=== PATIENT | female | born 1950 | race Caucasian/White ===

== ENCOUNTER → 2016-07-15 | Outpatient (CLI) | payer OTHER ==
[~2016-07-15] MED LIST: ASPI81TA28 PO; CALC-20 PO; CHOL2000 PO; CYAN100020 PO; LEVO25TA PO; MAGN250T3 PO; MULTTAB45 PO; TAMO20TA47 PO
[2016-07-15 15:06] LABS: ALKALINE PHOSPHATASE 14 U/L (45-117); ALT/SGPT 34 U/L (12-78); AST/SGOT 21 U/L (15-37); BLOOD UREA NITROGEN 19 mg/dl (7-18); BUN/CREATININE RATIO 20.1 (10-20); CALCIUM 9.1 mg/dl (8.5-10.1); CARBON DIOXIDE 29 mmol/L (21-32); CHLORIDE 105 mmol/L (98-107); CHOLESTEROL 207 mg/dl (0-200); CREATININE 0.96 mg/dl (0.60-1.20); GLUCOSE 91 mg/dl (70-99); POTASSIUM 4.2 mmol/L (3.5-5.1); SODIUM 141 mmol/L (136-145)
[2016-07-15 15:29] LABS: ALB/GLOB RATIO 1.3 (0.9-2); CHOLESTEROL/HDL RATIO 2.5; HDL CHOLESTEROL 82 mg/dl; LDL CHOLESTEROL CALCULATED 108 mg/dl; TRIGLYCERIDES 85 mg/dl (0-150); VERY LOW DENSITY LIPOPROT CALC 17 mg/dl
== END | disposition home or self-care (01) ==
LOC: C.LABBC 10:59
PROVIDERS: ATTEND Family Medicine
DX: E03.9 Hypothyroidism, unspecified (principal); Z11.59 Encounter for screening for other viral diseases; E78.5 Hyperlipidemia, unspecified; M85.80 Other specified disorders of bone density and structure, unspecified site

== ENCOUNTER → 2016-10-13 | Outpatient (CLI) | payer OTHER ==
--- NOTE | 2016-10-13 13:29 | MAMMOGRAPHY REPORT ---
BILATERAL DIGITAL DIAGNOSTIC MAMMOGRAM TOMOSYNTHESIS WITH CAD: 10/13/2016 CLINICAL HISTORY: 66-year-old woman presents for annual bilateral mammography. She has a history of right breast cancer status post breast conservation therapy. No current complaints. TECHNIQUE: Bilateral CC and MLO 2-D digital and tomosynthesis images, spot magnification right CC an d ML views were obtained. Current study was also evaluated with a Computer Aided Detection (CAD) sys tem. COMPARISON: Comparison is made to exams dated: 10/11/2015 mammogram, 04/03/2015 ultrasound, 5 mammogram, 10/01/2014 mammogram, 01/12/2014 mammogram, and 12/11/2013 mammogram - [facility]. BREAST COMPOSITION: There are scattered areas of fibroglandular density in both breasts. FINDINGS: A linear scar marker overlies the 12:00 anterior right breast, denoting an area of prior l umpectomy. There is asymmetry in the superior left breast on the MLO view that appears similar datin g back to at least 10/03/2007, therefore likely benign. There is no evidence of any suspicious mass, architectural distortion or suspicious calcifications bilaterally. In particular on the spot magnif ication views of the right breast, no new calcifications are seen. IMPRESSION: ACR BI-RADS CATEGORY 2: BENIGN Stable bilateral mammograms, without mammographic evidence of malignancy. Recommend bilateral mammog papito in one year, and consider remaining a diagnostic patient for repeat spot magnification views ne ar the surgical site, given the personal history of right breast cancer and associated faint calcific ations. The patient has been verbally notified of the results. Approximately 10% of breast cancers are not detected with mammography. A negative mammographic report should not delay biopsy if a clinically suggestive mass is present. Marylu Alejandra M.D. ay/:10/13/2016 11:04:45 Pathologist: Felipa BUENO)(Naima), [facility] letter sent: Normal 1/2 BI-RADS Code: ACR BI-RADS Category 2: Benign
== END | disposition home or self-care (01) ==
LOC: C.MAMM 10:16
PROVIDERS: ATTEND Surgery
DX: C50.911 Malignant neoplasm of unspecified site of right female breast (principal)

== ENCOUNTER → 2016-11-04 | Outpatient (CLI) | payer OTHER | END | disposition home or self-care (01) | LOC: C.PATHSPEC 17:49 | PROVIDERS: ATTEND Obstetrics & Gynecology | DX: N95.0 Postmenopausal bleeding (principal) ==

== ENCOUNTER → 2016-12-25 | Outpatient (CLI) | payer OTHER ==
[~2016-12-25] MED LIST changes: -MAGN250T3 PO
== END | disposition home or self-care (01) ==
LOC: C.PAPS 16:31
PROVIDERS: ATTEND Obstetrics & Gynecology
DX: Z12.4 Encounter for screening for malignant neoplasm of cervix (principal)

== ENCOUNTER → 2016-12-25 | Outpatient (CLI) | payer OTHER | END | disposition home or self-care (01) | LOC: C.CPL 12:35 | PROVIDERS: ATTEND Obstetrics & Gynecology | DX: Z01.818 Encounter for other preprocedural examination (principal); Z12.4 Encounter for screening for malignant neoplasm of cervix ==

== ENCOUNTER → 2016-12-28 | Day surgery (SDC) | payer OTHER ==
[2016-11-24 10:09] VITALS: Ht 157.5 cm; Wt 58.2 kg
--- NOTE | 2016-12-27 13:56 | HISTORY & PHYSICAL EXAMINATION ---
DATE OF ADMISSION: 12/28/2016 The patient is for surgery on 12/28/2016. CHIEF COMPLAINT: For hysteroscopy and D&C. HISTORY OF PRESENT ILLNESS: The patient is a 66-year-old white female who has had intermittent light bleeding since June of this year. An ultrasound done on 11/04/2016 showed her endometrial lining to be 5.2 mm in thickness. Endometrial biopsy the same day yielded inadequate tissue for diagnosis. The patient is taking tamoxifen as she was treated for breast cancer in 2013. She had been taking raloxifene prior to the diagnosis of breast cancer. Her breast cancer was treated with partial mastectomy of the right breast, radiation therapy as well as chemotherapy. PAST MEDICAL HISTORY: ALLERGIES: The patient has no known drug allergies. MEDICATIONS: She presently takes aspirin 81 mg daily though was asked to stop this when seen on December 25. She also takes levothyroxine 25 mcg daily, tamoxifen daily as well as calcium plus vitamin D, a multivitamin, vitamin B12 and vitamin D. ILLNESSES: As mentioned, the patient has been treated for breast cancer. She also is hypothyroid. In addition, has a diagnosis of hyperlipidemia. She has osteopenia. She has been treated for vitamin D deficiency. PAST SURGICAL HISTORY: She has had eye surgery in the past. Also, partial right mastectomy as mentioned. History of radiation therapy to the right breast. Also, a history of sinus surgery. FAMILY HISTORY: Her sister and paternal aunt have been treated for breast cancer. SOCIAL HISTORY: The patient is . She denies smoking cigarettes. She drinks alcohol occasionally. PHYSICAL EXAMINATION: VITAL SIGNS: Height 5 feet 2 inches, weight 130 pounds, blood pressure was 122/74. HEENT: Grossly within normal limits. NECK: Supple without masses. CHEST: Her lungs are clear without wheezing. HEART: Regular rate and rhythm. No murmurs, gallops or rubs. ABDOMEN: Soft and nontender with no masses and no obvious hernias. PELVIC: External genitalia normal. Vagina pink and smooth. Cervix appears normal. Uterus is within normal limits in size and nontender. Adnexa nontender with no masses palpable. EXTREMITIES: No cyanosis, clubbing or edema. IMPRESSION: A 66-year-old white female with post-menopausal bleeding. PLAN: The patient is for hysteroscopy, dilation of the cervix and curettage with possible removal of polyp/lesion. The patient is aware of the risks of bleeding, infection, damage to internal organs, perforation of the uterus and possible need for further surgery and treatment. The patient wishes to proceed with hysteroscopy and D&C. She is also aware of the alternative of no treatment, which carries the risk of potentially missing a cancer. ELIZABETH
[~2016-12-28] VITALS: Ht 157.5 cm; Wt 58.2 kg
[~2016-12-28] MED LIST changes: +ATROPINE SULFATE 0.1 MG/ML 5ML SYR IV PRN; +DEXAMETHASONE SOD INJ 4 MG/ML VIAL ONE; +EpHEDrine SULFATE INJ 50 MG/ML AMP IV PRN; +FENTANYL CITRATE INJ 50 MCG/1 ML 2 ML VIAL IV PRN; +FENTANYL CITRATE INJ 50 MCG/1 ML 2 ML VIAL ONE; +IBUPROFEN 600 MG TAB PO PRN; +KETOROLAC TROMETHAMINE 30 MG/ML VIAL ONE; +LACTATED RINGER'S 1000ML 1,000 ML IV SCH; +LIDOCAINE HCL 2% 2 ML VIAL (20MG/ML) ONE; +MIDAZOLAM HCL 1 MG/ML 2ML VIAL ONE; +ONDANSETRON INJ 2 MG/ML 2 ML VIAL IV PRN; +ONDANSETRON INJ 2 MG/ML 2 ML VIAL ONE; +PROPOFOL IV EMULSION 10 MG/ML 20 ML VIAL IV ONE; +SODIUM CHLORIDE 0.9% 1000ML 1,000 ML IV SCH
--- NOTE | 2016-12-28 06:49 | History & Physical Bridge - SC ---
H&P Re-Evaluation Bridge Note: I have examined the patient, reviewed the History & Physical and in the interval since the performance of the History & Physical I have noted the following changes of clinical significance: No changes noted
--- NOTE | 2016-12-28 07:33 | [facility] Post Operative Brief Note ---
Immediate Operative Summary Operative Date Dec 28, 2016. Pre-Operative Diagnosis Post Menopausal Bleeding Post-Operative Diagnosis Same Procedure(s) Performed Dilatation And Curettage, Hysteroscopy Surgeon Dr. Paris Core Shaper Surgeon(s) None Estimated Blood Loss 25 ML Findings See dictated note. Specimens A. Endocervical Curettings B. Endometrial Curettings Complication(s) None Disposition Recovery Room / PACU
--- NOTE | 2016-12-28 07:44 | Discharge Instructions-SurgCtr ---
Discharge Instructions Date of Service Dec 28, 2016. Visit Reason for Visit: Post Menopausal Bleeding Discharge Discharge Diagnosis / Problem: S/P Hysteroscopy, D&C Discharge Goals Goal(s): Diagnostic testing, Therapeutic intervention Activity Recommendations Activity Limitations: per Instructions/Follow-up section Anesthesia . Post Anesthesia Instructions: If you have had General Anesthesia or IV Sedation: * Do not drive today. * Resume driving when surgeon permits. * Do not make important decisions or sign legal documents today. * Call surgeon for: 1. Temperature elevations greater than 101 degrees F. 2. Uncontrollable pain. 3. Excessive bleeding. 4. Persistent nausea and vomiting. 5. Medication intolerance (nausea, vomiting or rash). * For nausea and vomiting use only clear liquids such as: tea, soda, bouillon until nausea subsides, then gradually increase diet as tolerated. * If you have any concerns or questions, call your surgeon's office. If physician is unavailable and it is an emergency, call 911 or go to the nearest emergency room. . Instructions / Follow-Up Instructions / Follow-Up ACTIVITY RECOMMENDATIONS: * Avoid tampons, douching, hot tubs, pools, and intercourse until bleeding has stopped. * May shower as usual. * No strenuous activity for 24-48 hours. After 24-48 hours, you may do anything you feel like doing (driving and sports are okay). SPECIAL CARE INSTRUCTIONS: Special Diet: * Mild nausea may occur in the immediate post-operative period. * Take clear liquids such as tea, cola or bouillon until all nausea has subsided; you may then resume your normal diet. Special Care: * Light bleeding and vaginal spotting can last from a few days to 3-4 weeks. Call your doctor if bleeding becomes heavier than the heaviest part of your period. Call if you have persistent severe cramping or foul smelling discharge. * Check your temperature twice a day for one week. If it goes above 100.4 degrees Fahrenheit (38.0 Celsius), notify your doctor. * Call your doctor's office for an appointment for 2-4 weeks after your surgery. [phone] FOLLOW-UP VISIT: Call your doctor's office for an appointment for 2-4 weeks after your surgery. Diet Recommendations Home Diet: resume previous diet Procedures Procedures Performed: Dilatation And Curettage, Hysteroscopy Pending Studies Studies pending at discharge: yes List of pending studies: We will call you with the pathology report from the tissue removed with the D&C. Medical Emergencies . Who to Call and When: Medical Emergencies: If at any time you feel your situation is an emergency, please call 911 immediately. . Non-Emergent Contact Non-Emergency issues call your: Fixture Builder Call Non-Emergent contact if: temperature is above 100.5, your pain is not controlled . . "Provider Documentation" section prepared by Joyce Paris. .
--- NOTE | 2016-12-28 08:23 | Anesthesia Progress Nt - [facility] ---
Anesthesia Post Op Note Date & Time Dec 28, 2016 at 08:23 Vital Signs Pain Intensity: 0 Vital Signs Past 12 Hours Date Time Temp Pulse Resp B/P (MAP) Pulse Ox O2 Delivery O2 Flow Rate FiO2 12/28/16 07:39 36.4 71 10 116/60 99 Mask 6 12/28/16 06:26 36.8 72 16 122/74 (90) 95 Room Air Notes Mental Status: alert / awake / arousable, participated in evaluation Pt Amnestic to Procedure: Yes Nausea / Vomiting: adequately controlled Pain: adequately controlled Airway Patency, RR, SpO2: stable & adequate BP & HR: stable & adequate Hydration State: stable & adequate Anesthetic Complications: no major complications apparent
[2016-12-28 09:02] VITALS: BP 129/83; PULSE 68; O2SAT 100
--- NOTE | 2016-12-28 09:11 | OPERATIVE REPORT ---
DATE OF OPERATION: 12/28/2016 PREOPERATIVE DIAGNOSIS: Postmenopausal bleeding. POSTOPERATIVE DIAGNOSIS: Same. PROCEDURES PERFORMED: Hysteroscopy and dilation and curettage. SURGEON: Dr. Joyce Paris. ANESTHESIA: General. DOOR CAPTAIN: Dr. Lund. DESCRIPTION OF PROCEDURE: The patient was taken to the operating room, where general anesthesia was administered. After an adequate level was obtained, she was placed in dorsal lithotomy position. Vulva, vagina, and cervix were prepped with Betadine solution. The patient was draped. The uterus was palpated and noted to be midline and within normal limits size. There were no adnexal masses. Bladder was drained with a straight catheter. Weighted speculum was placed in the posterior fornix of the vagina. The anterior lip of the cervix was grasped with an Allis clamp. Endocervical curettings were obtained. The cervix was then dilated. The uterine sound was used and the uterus sounded to 6 cm. The cervix was then further dilated in order to admit a small operative hysteroscope. Hysteroscope was introduced and at that point, it was evident that the endometrial depth was 9 cm. The endometrial cavity appeared smooth without obvious lesion. There was a small area in the right portion of the upper endometrial cavity that appeared consistent with adhesions. There were no polyps and no fibroids. There were no lesions. The endocervical canal was then inspected and in the distal canal, there appeared to be some cystic structures and some folds of the endocervix. An additional endocervical curettage was carried out for an additional small amount of tissue. Endometrial curettage was then performed. A small smooth sharp curette was used. An attempt was made to use a serrated curet, but this serrated curet could not be introduced into the endometrial cavity. The cavity was visualized once more with the hysteroscope and appeared to be devoid of any lesions. Cervical canal was again inspected and again, there were some protrusions of tissue into the canal, although these were likely just normal endocervical folds. Nonetheless, another endocervical curettage was carried out. At this point, the procedure was ended. ESTIMATED BLOOD LOSS: 25 mL. The patient tolerated the procedure well and was taken to the recovery room in good condition. I attest to the content of the Intraoperative Record and any orders documented therein. Any exceptions are noted below. ELIZABETH
== END | disposition home or self-care (01) ==
LOC: X.SURG 06:16
PROVIDERS: ATTEND Obstetrics & Gynecology
DX: N95.0 Postmenopausal bleeding (principal); B00.9 Herpesviral infection, unspecified; E78.5 Hyperlipidemia, unspecified; E03.9 Hypothyroidism, unspecified; E55.9 Vitamin D deficiency, unspecified; Z80.3 Family history of malignant neoplasm of breast; Z85.3 Personal history of malignant neoplasm of breast; Z79.82 Long term (current) use of aspirin; Z79.899 Other long term (current) drug therapy

== ENCOUNTER → 2017-03-22 | Outpatient (CLI) | payer OTHER ==
[~2017-03-22] MED LIST changes: -ATROPINE SULFATE 0.1 MG/ML 5ML SYR IV PRN; -DEXAMETHASONE SOD INJ 4 MG/ML VIAL ONE; -EpHEDrine SULFATE INJ 50 MG/ML AMP IV PRN; -FENTANYL CITRATE INJ 50 MCG/1 ML 2 ML VIAL IV PRN; -FENTANYL CITRATE INJ 50 MCG/1 ML 2 ML VIAL ONE; -IBUPROFEN 600 MG TAB PO PRN; -KETOROLAC TROMETHAMINE 30 MG/ML VIAL ONE; -LACTATED RINGER'S 1000ML 1,000 ML IV SCH; -LIDOCAINE HCL 2% 2 ML VIAL (20MG/ML) ONE; -MIDAZOLAM HCL 1 MG/ML 2ML VIAL ONE; -ONDANSETRON INJ 2 MG/ML 2 ML VIAL IV PRN; -ONDANSETRON INJ 2 MG/ML 2 ML VIAL ONE; -PROPOFOL IV EMULSION 10 MG/ML 20 ML VIAL IV ONE; -SODIUM CHLORIDE 0.9% 1000ML 1,000 ML IV SCH; -TAMO20TA47 PO; +TAMO20TA9 PO
== END | disposition home or self-care (01) ==
LOC: C.MAMM 13:47
PROVIDERS: ATTEND Physician Assistant Medical
DX: M85.89 Other specified disorders of bone density and structure, multiple sites (principal)

== ENCOUNTER → 2017-04-07 | Outpatient (CLI) | payer OTHER ==
[2016-04-07 13:36] VITALS: BP 123/82; PULSE 72
[2017-04-07 13:26] VITALS: BP 119/76; PULSE 79; TEMP 36.8; O2SAT 99
--- NOTE | 2017-04-07 17:24 | Radiation Oncology Follow-Up ---
Radiation Oncology Follow-Up Date of Visit Apr 07, 2017. Reason For Visit Annual follow-up Radiation Completion Date 08/15/14 Diagnosis (1) Stage I breast cancer Status: Resolved Onset Date: 01/12/2014 Histology Subtype: ductal Stage: l Permanent Comment: Status post abnormal right breast mammogram 11/03/2013 Biopsy suspicious for carcinoma 12/11/2013 Stereotactic biopsy 01/12/2014 revealing invasive ductal carcinoma grade 3 Estrogen receptor positive, progesterone receptor negative, HER-2/zaida negative Status post partial mastectomy and sentinel lymph node biopsy 02/05/2014 Pathologic stage [id number] Oncotype DX score 31 Systemic chemotherapy with Taxotere and Cytoxan for 4 cycles Status post completion of radiation therapy 08/15/2014 received 5000 cGy utilizing hypo-fractionation Last Edited By: Nasra Garibay on Oct 09, 2014 15:34 History of Present Illness Ms. Davalos has been followed with screening mammograms. She has 1 sister who is alive with a history of breast cancer. She did have a right breast biopsy 2 years ago which was benign. Her most recent screening mammogram was a bilateral mammogram performed on 11/03/2013. This showed a new rounded 6.6 mm mass in the 1 to 2:00 far posterior position of the right breast. Further evaluation with spot compression views and ultrasound was recommended. This study was compared to the previous study from 11/02/2012. On 11/29/2013 patient underwent a unilateral right digital diagnostic mammogram and targeted right ultrasound. This showed a new obscured 6 x 4 millimeter mass with somewhat spiculated margins in the 2 o'clock position posterior right breast. Real-time high-resolution sonographic evaluation was performed throughout the upper inner quadrant of the right breast. In the 2:00 axis 3 cm from the nipple there is a tolerable than wide hypoechoic solid mass with irregular and indistinct margins measuring 6.1 x 4.7 mm that correlate well with the new mammographic finding. This was given a BI- RADS Category 5 highly suggestive of malignancy and biopsy was recommended. On 12/11/2013 the patient underwent an ultrasound-guided biopsy of the right breast mass. 7 samples were taken with 3 passes. A biopsy marker was placed. The tissue revealed atypical epithelial infiltrate which was felt to be highly suspicious for carcinoma. Case: [id number]. Follow-up excision or rebiopsy was recommended. On 01/12/2014 patient underwent a stereotactic biopsy of the right breast suspicious mass. This revealed an invasive ductal carcinoma [place] grade 3 involving multiple cores measuring at least 0.6 cm in greatest dimension. 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 Estrogen receptors were strongly positive. Progesterone receptors were negative and HER-2/zaida was negative. Case: [id number]. The patient was seen by Dr. Cristobal Serrano for evaluation and discussion of the surgical treatment options. The patient opted to proceed with a breast conserving therapy. Therefore on 02/05/2014 she underwent a partial mastectomy and sentinel lymph node biopsy. The partial mastectomy specimen revealed a 2.0 cm lesion which was an invasive ductal carcinoma grade 3 of 3 with a small component of high-grade DCIS. The margins were negative. The invasive carcinoma approached within 0.5 cm of the superior margin. DCIS approaches within 0.1 cm the inferior margin. No perineural invasion was identified. Estrogen receptors were positive on previous core biopsy. Progesterone receptors were negative on previous core biopsy and HER-2/zaida overexpression was negative. A single sentinel node was identified and was negative by H&E and by 2 pankeratin immunostains. Case: [id number]. Final stage is therefore pT1c pN0(i-). Patient has been seen by Dr. Cristobal Blakely for discussion of the role of adjuvant therapy. An Oncotype DX Was performed and was 31. The patient underwent systemic chemotherapy with Taxotere and Cytoxan for 4 cycles. She returned to our office to undergo radiation therapy. Radiation was completed 08/15/2014 she received 5000 cGy utilizing hypo- fractionation. Interim History She has noticed no changes to her breast over this past year. She is noted no masses or tenderness no change in the axilla. She's had no swelling of her arm. She is up-to-date on mammography. She did develop postmenopausal vaginal bleeding. She has been on tamoxifen. She saw her biofuels plant operations engineer and underwent an endometrial biopsy on 11/04/2016. This showed extremely scant benign glandular tissue. Specimen [id number]. On 12/28/2016 she had a D&C. This was negative for dysplasia and carcinoma. Specimen [id number]. She has not had any further vaginal bleeding since undergoing the 2 procedures. Allergies Coded Allergies: No Known Allergies (Unverified , 12/28/16) Home Medications Scheduled Aspirin (Aspirin Ec), 1 TAB PO QAM Calcium Carbonate-Vitamin D (Calcium 600 + D), 1 TAB PO BID Cholecalciferol (Vitamin D3), 1,000 MG PO QAM Cyanocobalamin (Vitamin B12), 1 TAB PO Q2D Levothyroxine Sodium (Synthroid), 25 MCG PO QAM Multiple Vitamin (Multiple Vitamin), 1 TAB PO QAM Tamoxifen (Nolvadex), 20 MG PO QAM Review of Systems Gastrointestinal: Symptoms: WNL Oral: Symptoms: No Problems Respiratory: Symptoms: WNL Respiratory Comments: has some phlegm Urinary: Symptoms: WNL Skin: Symptoms: No Problems Breast: Right Upper Arm Measurement: 26.2 Right Mid Arm Measurement: 20.6 Right Wrist Measurement: 15.0 Left Upper Arm Measurement: 27.5 Left Mid Arm Measurement: 21.6 Left Wrist Measurement: 15.3 Arm Dominence: Right Patient Cosmetic Evaluation: Excellent Staff Cosmetic Evalaluation: Excellent Physical Exam Vital Signs Date Time Temp Pulse Resp B/P (MAP) Pulse Ox O2 Delivery O2 Flow Rate FiO2 04/07/17 13:26 36.8 79 16 119/76 99 General Appearance: no apparent distress Eyes: normal inspection, EOMI ENT: normal ENT inspection, hearing grossly normal Neck: no adenopathy, thyroid normal Respiratory/Chest: lungs clear, no respiratory distress, no accessory muscle use Breast: Breast examination reveals well-healed incisions of the right breast. There are no masses or tenderness and no axillary adenopathy. She has no skin retractions or nipple changes. Using the [place] score cosmesis she has a in excellent outcome. The left breast showed no masses or tenderness no axillary adenopathy. Cardiovascular: regular rate, rhythm, no gallop, no murmur Abdomen: non tender Extremities: no pedal edema Neurologic/Psychiatric: no motor/sensory deficits, alert, normal mood/affect Skin: warm/dry Pain Management Patient Reports Pain: No Side: Bilateral Pain Location: None Patient Preferred Pain Scale: 0 - 10 Initial Pain Intensity: 0.0 Pain Management Plan She denies pain therefore requires no pain management. Laboratory Laboratory Results: not applicable Pathology Pathology Results: were reviewed Pathology Comments Reviewed in the interim history. Imaging Imaging Studies: were reviewed, and pertinent findings noted below Imaging Comments Patient: KWAME DAVALOS Med Rec: [id number] Address1: [facility] [address] Address2: Acct ID: [id number] Date: 1950 Sex: F Ref Phy: Jocye Paris M.D. Att Phy: Cristobal Serrano M.D. Christie Phy: Kolton Dan D.O.Int.Med. Inter Phy: Marylu Alejandra MD [facility] Zip: [place] [address] SC: C.MAMM Report #: [id number] Steward/Stewardess Banquet: JOHN Diagnosis: 12 F/U--HX BREAST CA Service Date: 10/13/16 MNE: [id number] Ordering Dr: Cristobal Serrano M.D. CC: Cristobal Serrano M.D. CONF: DICTATED BY: Marylu Alejandra MD MAMMOGRAPHY REPORT BILATERAL DIGITAL DIAGNOSTIC MAMMOGRAM TOMOSYNTHESIS WITH CAD: 10/13/2016 CLINICAL HISTORY: 66-year-old woman presents for annual bilateral mammography. She has a history of right breast cancer status post breast conservation therapy. No current complaints. TECHNIQUE: Bilateral CC and MLO 2-D digital and tomosynthesis images, spot magnification right CC and ML views were obtained. Current study was also evaluated with a Computer Aided Detection (CAD) system. COMPARISON: Comparison is made to exams dated: 10/11/2015 mammogram, 04/03/2015 ultrasound, 04/03/2015 mammogram, 10/01/2014 mammogram, 01/12/2014 mammogram, and 12/11/2013 mammogram - [facility]. BREAST COMPOSITION: There are scattered areas of fibroglandular density in both breasts. FINDINGS: A linear scar marker overlies the 12:00 anterior right breast, denoting an area of prior lumpectomy. There is asymmetry in the superior left breast on the MLO view that appears similar dating back to at least 10/03/2007, therefore likely benign. There is no evidence of any suspicious mass, architectural distortion or suspicious calcifications bilaterally. In particular on the spot magnification views of the right breast, no new calcifications are seen. IMPRESSION: ACR BI-RADS CATEGORY 2: BENIGN Stable bilateral mammograms, without mammographic evidence of malignancy. Recommend bilateral mammography in one year, and consider remaining a diagnostic patient for repeat spot magnification views near the surgical site, given the personal history of right breast cancer and associated faint calcifications. The patient has been verbally notified of the results. Approximately 10% of breast cancers are not detected with mammography. A negative mammographic report should not delay biopsy if a clinically suggestive mass is present. Marylu Alejandra M.D. ay/:10/13/2016 11:04:45 Oven Heater Helper: Felipa CASTAÑEDA(Jairo)(M), [facility] letter sent: Normal 1/2 BI-RADS Code: ACR BI-RADS Category 2: Benign Dictated by: Marylu Alejandra MD Signed by: Marylu Alejandra MD Assessment & Plan Plan: Continue annual mammography she has a mammogram scheduled for September 2017. I discussed with her that the radiologist had recommended that she continue to have diagnostic mammograms. She continues on tamoxifen. She'll continue follow -up with a primary care physician, Dr. Gomez, and Dr. Paris. We asked her to return to our office in 1 year. She may call if she has any questions or concerns in the interim. Total Time In Follow-Up I spent 20 minutes speaking to the patient and performed an examination. I spent 15 minutes reviewing information and completing this note. Copy To Jigna Gomez MD; Marylu Flores, MARTIN; Joyce Paris M.D. Problem Qualifiers (1) Stage I breast cancer: Estrogen receptor status: positive Laterality: right Qualified Codes: C50.911 - Malignant neoplasm of unspecified site of right female breast; Z17.0 - Estrogen receptor positive status [ER+]
== END | disposition home or self-care (01) ==
LOC: C.ONC 13:19
PROVIDERS: ATTEND Physician Assistant Medical
DX: Z08 Encounter for follow-up examination after completed treatment for malignant neoplasm (principal); Z92.3 Personal history of irradiation; Z85.3 Personal history of malignant neoplasm of breast

== ENCOUNTER → 2017-07-23 | Outpatient (CLI) | payer OTHER ==
[2017-07-23 16:16] LABS: ALBUMIN 3.9 gm/dl (3.4-5.0); ALT/SGPT 27 U/L (12-78); BLOOD UREA NITROGEN 16 mg/dl (7-18); CALCIUM 9.5 mg/dl (8.5-10.1); CARBON DIOXIDE 30 mmol/L (21-32); CREATININE 0.93 mg/dl (0.60-1.20); GLUCOSE 93 mg/dl (70-99); POTASSIUM 3.7 mmol/L (3.5-5.1); SODIUM 140 mmol/L (136-145); TOTAL PROTEIN 7.3 gm/dl (6.4-8.2)
[2017-07-23 16:25] LABS: ALKALINE PHOSPHATASE 23 U/L (45-117); AST/SGOT 22 U/L (15-37); CHOLESTEROL 223 mg/dl (0-200); LDL CHOLESTEROL CALCULATED 100 mg/dl
== END | disposition home or self-care (01) ==
LOC: C.LAB1850 14:09
PROVIDERS: ATTEND Nurse Practitioner Adult Health
DX: Z00.00 Encounter for general adult medical examination without abnormal findings (principal); E78.5 Hyperlipidemia, unspecified; E03.9 Hypothyroidism, unspecified; E55.9 Vitamin D deficiency, unspecified

== ENCOUNTER → 2017-12-02 | Outpatient (CLI) | payer OTHER ==
[~2017-12-02] MED LIST changes: -CHOL2000 PO
--- NOTE | 2017-12-02 15:44 | MAMMOGRAPHY REPORT ---
BILATERAL DIGITAL SCREENING MAMMOGRAM TOMOSYNTHESIS WITH CAD: 12/02/2017 CLINICAL HISTORY: Asymptomatic. Personal history of breast cancer. TECHNIQUE: The study was acquired using full field digital technology and interpreted from soft copy. Breast tomosynthesis in addition to standard 2D mammography was performed. Current study was also ev aluated with a Computer Aided Detection (CAD) system. COMPARISON: Comparison is made to exams dated: 10/13/2016 mammogram, 10/11/2015 mammogram, 04/03/2015 mammogram, 10/01/2014 mammogram, 01/12/2014 mammogram, and 12/11/2013 mammogram - [facility]. BREAST COMPOSITION: There are scattered areas of fibroglandular density in both breasts. FINDINGS: No suspicious masses, calcifications, or areas of architectural distortion are noted in either breast . There has been no significant interval change compared to prior exams. There are stable postsurgic al changes in the right upper inner quadrant from prior lumpectomy. IMPRESSION: ACR BI-RADS CATEGORY 2: BENIGN There is no mammographic evidence of malignancy. A 1 year screening mammogram is recommended.( 019) The patient will receive written notification of the results. Some breast cancers are not detected with mammography. A negative mammographic report should not jer y biopsy if a clinically suggestive mass is present. Carolyn Selby M.D. ah/:12/02/2017 14:57:54 Director Business: RT Adina(Jairo)(M), [facility] letter sent: Normal 1/2 BI-RADS Code: ACR BI-RADS Category 2: Benign
== END | disposition home or self-care (01) ==
LOC: C.MAMM 13:41
PROVIDERS: ATTEND Obstetrics & Gynecology
DX: Z12.31 Encounter for screening mammogram for malignant neoplasm of breast (principal)